=== PATIENT | female | born 2000 | race Caucasian/White ===

== ENCOUNTER 2023-03-05 10:51 | Emergency (ER) | payer OTHER, SELFPAY ==
[2023-03-05 11:03] VITALS: BP 149/85; PULSE 93; RESP 20; TEMP 36.8; O2SAT 99
--- NOTE | 2023-03-05 15:00 | ED.GENADUL_ITS ---
Discharge Plan Disposition Patient Disposition: Home Condition: Good Discharge Details Clinical Impression: History of viral illness Primary Care Provider: Unknown,Unknown ED Provider: Montana Sommer Discharge Instructions Additional Instructions: covid testing negative today HPI General Date/Time Provider Initiated Documentation: 03/05/23 14:57 . Related Data Allergies Allergy/AdvReac Type Severity Reaction Status Date / Time No Known Allergies Allergy Unverified 03/05/23 11:02 General Stated Complaint: Recheck JODI: 4 PFSH All Active Problems (Updated 03/05/23 @ 14:58 by Montana Sommer MD) History of viral illness (Acute) Social History Smoking/Tobacco Use Status: Never Smoking risk assessment performed?: Yes Substance use type: does not use Course Vital Signs Vital signs: Vital Signs Temperature 36.8 C 03/05/23 11:03 Pulse 93 H 03/05/23 11:03 Respiratory Rate 20 03/05/23 11:03 Blood Pressure 149/85 H 03/05/23 11:03 Pulse Oximetry 99 03/05/23 11:03 Temperature 36.8 C 03/05/23 11:03 Temperature Source Oral 03/05/23 11:03 Pulse 93 H 03/05/23 11:03 Respiratory Rate 20 03/05/23 11:03 Respiratory Effort Normal 03/05/23 11:05 Blood Pressure 149/85 H 03/05/23 11:03 Blood Pressure Position Sitting 03/05/23 11:03 Pulse Oximetry 99 03/05/23 11:03 Oxygen Delivery Method Room Air 03/05/23 11:03 Oxygen Flow Rate 0 03/05/23 11:03
--- NOTE | 2023-03-05 16:52 | W.EDPROG ---
Date of service: 03/05/23 Time of Service: 16:52 Medical Decision Making 22-year-old female without significant past medical history presented to the emergency department for evaluation after a COVID exposure. She denied symptoms to the nursing staff. She presents with her father who tested positive for COVID. Her testing was negative. When I went to the room to evaluate her, her father was present, but she had left to go get something to eat. Patient was seen by nursing staff, but I did not get the opportunity to perform a physical examination prior to her leaving the department. Medical Records Medical records reviewed: Yes I reviewed the patient's medical records. Lab Data Lab results reviewed: Yes I reviewed the patient's lab results. Discharge Plan Disposition Patient Disposition: Home Condition: Good Discharge Details Clinical Impression: History of viral illness Primary Care Provider: Unknown,Unknown ED Provider: Montana Sommer Discharge Instructions Additional Instructions: covid testing negative today
--- NOTE | 2023-03-07 13:08 | NUR.NOTE ---
Patient's father, Blayne Daniel; called stating that the patient is now positive for COVID. He was asking if she could come and get Paxlovid as he did. Per Dr. Sommer the patient is a young, healthy adult with no medical issues that qualify her for the medication. I relayed this information to the father and he understood. Nursing Note:
== END 2023-03-05 15:22 | disposition home or self-care (01) ==
PROVIDERS: Emergency Provider Emergency Medicine
DX: Z53.21 Procedure and treatment not carried out due to patient leaving prior to being seen by health care provider (principal)
CPT/HCPCS: 00123